=== PATIENT | female | born 1990 | race Caucasian/White ===

== ENCOUNTER 2020-11-01 13:46 | Emergency (ER) | payer SELFPAY ==
[2020-11-01 15:29] VITALS: BP 111/70; PULSE 78; RESP 15; TEMP 36.5; O2SAT 97; BMI 24.6
[2020-11-01 15:43] VITALS: BP 142/78; PULSE 78; RESP 17; TEMP 36.6; O2SAT 100
--- NOTE | 2020-11-01 16:18 | CT_ITS ---
EXAMINATION: CT HEAD WITHOUT CONTRAST CLINICAL INFORMATION: Acute visual change, headache, rule out intracranial abnormality. COMPARISON: None TECHNIQUE: Contiguous axial imaging was performed from the skull base to vertex without intravenous administration of contrast. This CT examination was performed using dose optimization techniques as appropriate, variously including the following: *Automated exposure control *Adjustment of mA and/or kV according to patient size (this includes techniques or standardized protocols for targeted exams where dose is matched to indication/reason for exam; i.e. extremities or head) *Use of iterative reconstruction technique DLP: 670 mGy-cm FINDINGS: There is no evidence of acute intracranial hemorrhage or territorial infarction. No abnormal mass effect or midline shift is seen. Urena to white matter differentiation is well preserved. No extra-axial fluid collections are identified. The ventricles are normal in size. An incidental patent cava septum pellucidum is noted. There is no abnormal attenuation within the brain parenchyma. The osseous structures and soft tissues are normal. The mastoid air cells are clear. A tiny retention cyst versus inflammatory polyp is seen along the posterior margin of the posterior right ethmoid air cell measuring 0.[address]/CT head/brain wo con IMPRESSION: No acute intracranial pathology.
--- NOTE | 2020-11-01 16:26 | ED.GENADULT ---
HPI - General Adult General Chief complaint: Dizziness Stated complaint: Vision problems Time Seen by Provider: 11/01/20 15:43 History of Present Illness HPI narrative: 30-year-old female who presents to the emergency department for evaluation of acute visual changes, dizziness or headache. 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 She states that she was walking her route for approximately 2 hours ago when at 11:30 a.m. she had a sudden change in her vision. She states that she saw bright lights on her left peripheral vision, she then developed bright lights on her right peripheral vision. She then had blurry wavy lines in the center of her vision in both eyes. She felt disoriented. She felt dizzy. She states that she was unable to finish her route and had to call to get a ride. She states that her symptoms lasted approximately 20 minutes and then resolved and now her vision is normal. She states that after her vision returned to normal she did develop a [id number] headache located in the frontal area of her head. She states it is very unusual for her to get headaches. She states that 7 months prior showed a very similar event which lasted approximately 20 minutes but she could not recall if she had a headache associated with visual change. The patient states that she has been in her usual state of health. She states that she is able to walk her mail list processor route without any difficulty. She denies frequent headaches, nausea, vomiting, lightheadedness, dizziness or weakness. She does not have any medical problems. She is not aware of any significant family history. Related Data Allergies Allergy/AdvReac Type Severity Reaction Status Date / Time No Known Allergies Allergy Verified 11/01/20 16:18 Review of Systems Review of Systems: Yes all other systems are reviewed and are negative Constitutional: Constitutional: Reports as per HPI Eyes: Eyes: Reports as per HPI ENT: Reports as per HPI Cardiovascular: Cardiovascular: Reports as per HPI Respiratory: Respiratory: Reports as per HPI Gastrointestinal: Gastrointestinal: Reports as per HPI Genitourinary: Genitourinary: Reports as per HPI Musculoskeletal: Musculoskeletal: Reports as per HPI Integumentary/Breasts: Skin/Breast: Reports as per HPI Neurologic: Reports as per HPI and Reports Abnormal speech present Psychiatric: Psychiatric: Reports as per HPI Allergic/Immunologic: Allergic/Immunologic: Reports as per HPI PMFSH Past Medical History [facility] Narrative: Patient has no chronic medical problems, she does smoke 1/2 pack of cigarettes per day x2 years, she denies alcohol and drug use, family history of hypertension only. Medical History No known health problems Social History Social History Alcohol intake: never Smoking Status: Current every day smoker Use of substances other than those prescribed or required for medical reasons: No Advance Directives: No Advance Directives Information Provided: Yes Physical Exam Vital Signs: Vital Signs: Last Vital Signs Temp 98 F 11/01/20 15:43 Pulse 78 11/01/20 15:43 Resp 17 11/01/20 15:43 BP 142/78 H 11/01/20 15:43 Pulse Ox 100 11/01/20 15:43 Body Mass Index 24.6 Const: General: cooperative, no acute distress, alert and awake Orientation/consciousness: oriented to person, oriented to place and oriented to time Limitations: no limitations HENMT: Head: Yes normal to inspection, Yes normocephalic, Yes atraumatic and Yes other (No temporal tenderness) Ears: external ears normal General nose exam: Normal external nose present Face and sinus: Yes normal facial exam Mouth: Normal oral and palatal mucosa present, lip normal, tongue normal and oropharynx normal Teeth and gingiva: dentition normal Eyes: General: appearance normal, both eyes and all related structures Alignment and Position: alignment normal Periorbital: periorbital findings normal Eyelids: Yes eyelids normal Conjunctivae: conjunctivae normal Sclerae: sclerae normal Corneas: corneas normal Pupils: Equal, round and reactive pupils present, Pupils normal by confrontation and Other pupil findings (Funduscopic exam is normal) EOM: EOMs intact bilaterally Direct Ophthalmoscopy: normal light reflex Neck: Neck: Yes normal visual inspection and Yes supple Lymphatic: no lymphadenopathy noted Chest: Chest palpation & inspection: normal inspection of the chest and normal palpation of entire chest wall Resp: Effort & Inspection: normal respiratory effort, abnormal respiratory pattern, no audible wheezes and no respiratory distress Auscultation: clear to auscultation bilaterally, no crackles, no rales, no rhonchi and no wheezes Cardio: Rate: regular rate Rhythm: regular rhythm Heart sounds: S1 normal heart sound present, S2 normal heart sound present and no murmurs GI: Inspection: No distended Palpation (GI): Soft to palpation, nontender, no guarding and No hepatosplenomegaly present Auscultation: normal bowel sounds : General: Yes no CVA tenderness Back/Spine/Pelvis: Back: no CVA tenderness Skin: General skin exam: no rashes or lesions noted Lesions: no lesions Rashes: no rashes Wounds: no wounds Neuro: General: oriented to person, oriented to place and oriented to time Cranial nerves: Yes CN's II-XII intact bilaterally, Yes Equal, round and reactive pupils present and Yes Bilaterally intact EOM present Cognition (Neuro): normal cognition Speech: Abnormal speech present Motor exam (neuro): 5/5 motor strength present throughout Extrem: General: Yes normal to inspection, Yes full ROM, Yes no pedal edema and Yes no calf tenderness Psych: Appearance: grossly normal Mental Status: mental status grossly normal Speech and movement: Clear speech present Affect: normal affect Thought process: Normal thought process present Course Course Course Narrative: A 30-year-old with no significant past medical history presents to the emergency department for evaluation of acute visual change associated with dizziness and followed by headache once the visual change resolved who is currently about her baseline. Patient had a similar visual change 7 months prior. Patient's physical examination is unremarkable. I suspect the patient had a ocular migraine and I did discuss this with the patient. Given her associated dizziness, I did order a CT scan without contrast of the brain to rule out possible tumor with mass effect is the cause or visual change. 1753: The patient's CT scan of the brain revealed no acute findings to explain the patient's symptoms. The patient is currently at her baseline has had no further eye changes. At this time I believe the patient had an ocular migraine I did discuss this with her. She was advised to take Excedrin migraine as directed if her symptoms return and she is also advised to follow-up with her doctor for further evaluation. Discharge Plan Discharge Clinical Impression: Ocular migraine Patient Disposition: Home, Self-Care Instructions: Ocular Migraine (ED) Additional Instructions: The CT scan of her brain did not reveal any significant abnormalities to explain your change in vision, this is reassuring. I believe the symptoms are consistent with an ocular migraine. If you get the symptoms again take Excedrin migraine 1 or 2 tablets as soon as the symptoms start and then try to lie down in a dark quiet room. This often makes the symptoms go away within 30-60 minutes. Please follow-up with your doctor in 2 days for re-evaluation. Please return to the emergency department if your symptoms get worse or if you develop any new symptoms that are concerning to you. Referrals: Betsy Martin [Emergency Nurse] - 2 days
== END 2020-11-01 18:23 | disposition home or self-care (01) ==
PROVIDERS: Emergency Provider Emergency Medicine Emergency Medical Services
DX: G43.B0 Ophthalmoplegic migraine, not intractable (principal); F17.200 Nicotine dependence, unspecified, uncomplicated
CPT/HCPCS: 70450; 99284

== ENCOUNTER 2020-12-23 10:09 | Outpatient (REF) | payer SELFPAY | END 2020-12-23 10:10 | disposition home or self-care (01) | LOC: HO.LAB 10:09 | PROVIDERS: Visit Provider Internal Medicine | DX: Z20.822 Contact with and (suspected) exposure to COVID-19 (principal) | CPT/HCPCS: 36415; C9803; U0003 ==

== ENCOUNTER 2021-02-02 13:54 | Outpatient (REF) | payer OTHER, SELFPAY | END 2021-02-02 13:55 | disposition home or self-care (01) | LOC: HO.LAB 13:54 | PROVIDERS: Visit Provider Internal Medicine | DX: Z20.822 Contact with and (suspected) exposure to COVID-19 (principal) | CPT/HCPCS: 36415; C9803; U0003; U0005 ==

== ENCOUNTER 2023-05-22 08:30 | Outpatient (REF) | payer OTHER, SELFPAY ==
[2023-05-22 11:14] LABS: MANUAL DIFF FLAG NO
[2023-05-22 11:22] LABS: Basophils Absolute Auto 0.1 X10*3/uL (0.0-0.2); Basophils Percent Auto 1.3 % (0-2); Eosinophils Absolute Auto 0.4 X10*3/uL (0.0-0.4); Eosinophils Percent Auto 7.1 % (0-4); Hematocrit 39.6 % (37.0-47.0); Hemoglobin 13.6 g/dl (12.0-16.0); Imm Gran Abs Auto 0.02 X10*3/uL (0.00-0.03); Imm Gran Pct Auto 0.4 % (0.0-0.4); Lymphocytes Absolute Auto 1.9 X10*3/uL (1.2-4.9); Lymphocytes Percent Auto 34.1 % (20-40); Mean Corpuscular HGB Conc 34.3 g/dl (31.0-35.0); Mean Corpuscular Hemoglobin 29.5 pg (27.0-33.0); Mean Corpuscular Volume 85.9 fL (80.0-98.0); Mean Platelet Volume 10.9 fL (9.4-12.3); Monocytes Absolute Auto 0.4 X10*3/uL (0.1-1.2); Monocytes Percent Auto 7.1 % (2-11); Neutrophils Absolute Auto 2.8 x10*3/uL (2.0-8.3); Platelet Count 214 X10*3/uL (160-400); Red Blood Count 4.61 X10*6/uL (4.20-5.50); Red Cell Distribution Width 12.5 % (11.0-16.0); White Blood Count 5.5 X10*3/uL (4.8-10.8)
[2023-05-22 12:02] LABS: Alanine Aminotransferase 9 U/L (0-31); Albumin Level 4.3 g/dL (3.5-5.0); Alkaline Phosphatase 38 U/L (39-117); Anion Gap 11 (12-20); Aspartate Amino Transferase 16 U/L (5-31); Bilirubin Total 0.4 mg/dL (0.0-1.0); Blood Urea Nitrogen 17 mg/dL (9-16); Calcium 9.6 mg/dL (8.4-10.2); Carbon Dioxide 23 mmol/L (22-29); Chloride 109 mmol/L (96-108); Cholesterol 190 mg/dL; Estimated Glomerular Filt Rate > 60; Glucose Fasting 89 mg/dL (60-99); HDL Cholesterol 59 mg/dL; LDL Cholesterol Calculated 124 mg/dl; Potassium 4.3 mmol/L (3.3-5.1); Sodium 139 mmol/L (135-145); Triglycerides 36 mg/dL
== END 2023-05-22 08:31 | disposition home or self-care (01) ==
LOC: HO.HMGCLDS 08:30
PROVIDERS: PCP Internal Medicine; Visit Provider Internal Medicine
DX: Z00.01 Encounter for general adult medical examination with abnormal findings (principal); D22.9 Melanocytic nevi, unspecified; E66.3 Overweight
CPT/HCPCS: 36415; 80053; 80061; 85025